=== PATIENT | male | born 1995 | race Caucasian/White ===

== ENCOUNTER 2023-09-05 18:05 | Observation (INO) | payer OTHER ==
[~2023-09-05] VITALS: Ht 167.6 cm; Wt 86.2 kg
[2023-09-05] MEDS ORDERED: Prozac40 MG PO (19:23)
[2023-09-05] MEDS ORDERED: FOLI1 PO (19:24)
[2023-09-05] MEDS ORDERED: LAMO100 PO (19:24)
[2023-09-05] MEDS ORDERED: AMLO5 PO (19:24)
[2023-09-05] MEDS ORDERED: VITAMIN D5000 UNIT PO (19:25)
[2023-09-05] MEDS ORDERED: SUMA25 PO (19:25)
[2023-09-05] MEDS ORDERED: CYCL10 PO (19:25)
[2023-09-05] MEDS ORDERED: NAPR500 PO (19:26)
[2023-09-05 21:54] VITALS: BP 133/81
[2023-09-06] VITALS (12 sets, daily range): BP systolic 117–131; BP diastolic 70–91
[2023-09-06 05:05] LABS: BASOPHILS ABSOLUTE AUTO 0.04 K/mm3 (0.00-0.23); BASOPHILS PERCENT AUTO 1 % (0-2); EOSINOPHILS ABSOLUTE AUTO 0.13 K/mm3 (0.00-0.68); EOSINOPHILS PERCENT AUTO 2 % (0-6); Hematocrit 39.7 % (37.0-53.0); Hemoglobin 13.9 g/dL (13.5-17.5); IMMATURE GRAN ABSOLUTE AUTO 0.04 K/mm3 (0.00-0.10); IMMATURE GRAN PERCENT AUTO 1 % (0-1); LYMPHOCYTES ABSOLUTE AUTO 1.38 K/mm3 (0.84-5.20); LYMPHOCYTES PERCENT AUTO 26 % (21-46); MONOCYTES ABSOLUTE AUTO 0.46 K/mm3 (0.16-1.47); MONOCYTES PERCENT AUTO 9 % (4-13); Mean Corpuscular HGB 30.2 pg (26.0-34.0); Mean Corpuscular Volume 86 fL (80-100); Mean Platelet Volume 10.9 fL (9.1-12.4); NEUTROPHILS ABSOLUTE AUTO 3.32 K/mm3 (1.96-9.15); NEUTROPHILS PERCENT AUTO 62 % (41-73); Platelet Count 200 K/mm3 (150-400); RDW Coefficient Variation 11.9 % (11.7-14.2); RDW Standard Deviation 37.5 fL (35.1-46.3); Red Blood Cell Count 4.61 M/mm3 (4.30-5.90); White Blood Cell Count 5.37 K/mm3 (4.00-11.30)
[2023-09-06 05:28] LABS: Albumin, Blood 3.9 g/dL (3.4-5.0); Albumin/Globulin Ratio 1.4 (0.8-1.8); Bilirubin, Total 0.4 mg/dL (0.1-1.0); Bun/Creatinine Ratio 10.3 (12.0-20.0); Calcium, Blood 8.8 mg/dL (8.5-10.1); Creatinine, Blood 1.07 mg/dL (0.60-1.20); Globulin, Blood 2.8 g/dL (2.2-4.0); Potassium, Blood 4.2 mmol/L (3.5-5.5); Total Protein, Blood 6.7 g/dL (6.4-8.2)
--- NOTE | 2023-09-06 06:39 | NUR ---
PT ADM FOR APPENDICITIS. APPENDECTOMY SCHEDULED FOR THIS MORNING. PT ALERT, IN NO APPARENT DISTRESS. VSS. LUNGS CLEAR. ABD SOFT, NO TENDERNESS WITH PALPATION. VOIDING QS. NPO SINCE 2400. PIV PATENT AND INFUSING. CHG BATH DONE. AT BEDSIDE.
--- NOTE | 2023-09-06 12:00 | NUR ---
PATIENT WAS TAKEN BACK TO THE OR.
--- NOTE | 2023-09-06 12:21 | NUR ---
History, Chart, Medications and Allergies reviewed before start of procedure. Lungs clear T/O to Auscultation. Patient confirms NPO status and agrees with scheduled surgery. Pre-Op teaching done. Pt verbalizes understanding.
[2023-09-06] MEDS ORDERED: Norco 5-325 Ta1 EACH PO (14:15)
--- NOTE | 2023-09-06 14:33 | NUR ---
PATIENT ARRIVED FROM PACU TODAY. POD 0 LAP APPY PATIENT IS A&OX4. VS ARE WNL AND IS ON RA. HIS ABD HAS X3 LAP SITES WITH STERI STRIPS THAT ARE C/D/I. DENIES NAUSEA OR VOMITING. HE IS TOLERATING SMALL AMOUNTS OF PO INTAKE. HE REFUSES PAIN MEDS AT THIS TIME. HE IS CURRENTLY LAYING IN BED WITH CALL LIGHT IN REACH AND SPOUSE AT BEDSIDE. PATIENTS SPOUSE WAS GIVEN THE HARD PERSCRIPTION WELL.
--- NOTE | 2023-09-06 16:41 | NUR ---
DISCHARGE NOTE: PATIENT WAS EDUCATED ON DISCHARGE INSTRUCTIONS. HE VERBALIZED UNDERSTANDING OF INSTRUCTIONS AND HAD NO FURTHER QUESTIONS AT THIS TIME. IV WAS TAKEN OUT AND WNL. PAIN IS MANAGED WITH ORAL PAIN MEDS. HIS HARD SCRIPT WAS GIVEN TO HIS . PATIENTS ABD HAS X3 LAP SITES WITH STERI STRIPS THAT ARE C/D/I. DENIES NAUSEA OR VOMITING. HE IS TOLERATING PO INTAKE AND IS VOIDING. HE IS DRESSED AND HAS ALL PERSONAL ITEMS IN THE ROOM GATHERED. HE WAS WHEELCHAIRED OUT TO HIS WIFES CAR TO BE TAKEN HOME.
== END 2023-09-06 16:35 | disposition home or self-care (01) ==
LOC: ER 18:05 → SURS 18:06
PROVIDERS: Physician Assistant; ADMIT Surgery
PROC: 0DTJ4ZZ Resection of Appendix, Percutaneous Endoscopic Approach (ICD-10-PCS; principal; 2023-09-06 13:30)
DX: K35.80 Unspecified acute appendicitis (principal); Z88.2 Allergy status to sulfonamides
CPT/HCPCS: 36415; 80053; 85025; 88304; 96365; 96366; 96376; 99284-25; A9270; G0378; J0295; J1100; J1885; J2405; J2704; J3010; J7120

== ENCOUNTER 2024-11-24 08:44 | Emergency (ER) | payer OTHER ==
[~2024-11-24] VITALS: Ht 167.6 cm; Wt 82.4 kg
[~2024-11-24 08:44] MED LIST: AMLO5 PO; CYCL10 PO; FOLI1 PO; LAMO100 PO; NAPR500 PO; Norco 5-325 Ta1 EACH PO; Prozac40 MG PO; SUMA25 PO; VITAMIN D5000 UNIT PO
[2024-11-24 09:28] LABS: BASOPHILS ABSOLUTE AUTO 0.02 K/mm3 (0.00-0.23); BASOPHILS PERCENT AUTO 0 % (0-2); EOSINOPHILS ABSOLUTE AUTO 0.03 K/mm3 (0.00-0.68); EOSINOPHILS PERCENT AUTO 1 % (0-6); Hematocrit 44.7 % (37.0-53.0); Hemoglobin 16.1 g/dL (13.5-17.5); IMMATURE GRAN ABSOLUTE AUTO 0.03 K/mm3 (0.00-0.10); IMMATURE GRAN PERCENT AUTO 1 % (0-1); LYMPHOCYTES ABSOLUTE AUTO 0.82 K/mm3 (0.84-5.20); LYMPHOCYTES PERCENT AUTO 18 % (21-46); MONOCYTES PERCENT AUTO 7 % (4-13); Mean Corpuscular HGB 29.7 pg (26.0-34.0); Mean Corpuscular Volume 83 fL (80-100); Mean Platelet Volume 11.4 fL (9.1-12.4); NEUTROPHILS ABSOLUTE AUTO 3.44 K/mm3 (1.96-9.15); NEUTROPHILS PERCENT AUTO 74 % (41-73); Platelet Count 224 K/mm3 (150-400); RDW Coefficient Variation 11.9 % (11.7-14.2); RDW Standard Deviation 35.1 fL (35.1-46.3); Red Blood Cell Count 5.42 M/mm3 (4.30-5.90); White Blood Cell Count 4.64 K/mm3 (4.00-11.30)
[2024-11-24 09:46] LABS: Albumin, Blood 4.6 g/dL (3.4-5.0); Albumin/Globulin Ratio 1.5 (0.8-1.8); Bilirubin, Total 1.4 mg/dL (0.1-1.0); Bun/Creatinine Ratio 13.2 (12.0-20.0); Calcium, Blood 9.9 mg/dL (8.5-10.1); Creatinine, Blood 1.29 mg/dL (0.60-1.20); Potassium, Blood 3.8 mmol/L (3.5-5.5); Thyroid Stimulating Hormone 3.44 uIU/mL (0.360-4.800); Total Protein, Blood 7.6 g/dL (6.4-8.2)
[2024-11-24] MEDS ORDERED: NS 1,000 ML IV SCH (10:40)
[2024-11-24] MEDS ORDERED: HYDPAM25 PO (11:08)
[2024-11-24] MEDS ORDERED: Ondansetron HCl 2 MG / ML 2ML Vial IV ONE (11:10)
[2024-11-24 12:30] VITALS: BP 118/59
[2024-11-24] MEDS ORDERED: ONDA4ODT MM (12:36)
== END 2024-11-24 12:43 | disposition home or self-care (01) ==
LOC: ER 08:44
PROVIDERS: Physician Assistant
DX: F41.9 Anxiety disorder, unspecified (principal); E86.0 Dehydration; I10 Essential (primary) hypertension; Z88.2 Allergy status to sulfonamides; Z79.899 Other long term (current) drug therapy; Z59.89 Other problems related to housing and economic circumstances
CPT/HCPCS: 80053; 84443; 85025; 93005; 93010; 96361; 96374; 99284-25; J2405; J7030